=== PATIENT | female | born 1995 | race African-American/Black ===

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

== ENCOUNTER 2018-03-28 17:29 | Emergency (ER) | payer OTHER ==
[2018-03-28] MEDS ORDERED: RANITIDINE 50 MG/2 ML VIAL IVP ONE (17:52)
[2018-03-28] MEDS ORDERED: NS 1,000 ML IV ONE (17:52)
[2018-03-28] MEDS ORDERED: methylPREDNISolone SOD SUCC 125 MG/2 ML VIAL IVP ONE (17:52)
--- NOTE | 2018-03-28 17:55 | EDPHY ---
H & P Time Seen by Provider: 03/28/18 17:48 HPI/ROS: CHIEF COMPLAINT: Throat tightness HISTORY OF PRESENT ILLNESS: The patient is a history of nut allergy and is head epinephrine about 3 or 4 times in the last 5 years. At 5:10 p.m. She had some macaroni with possibly cashew sauce and immediately started feeling tightness and tingling in her throat. She presents to the emergency department with a sensation of tightness in her throat but no difficulty in swallowing, no change in speech, no wheezing stridor or drooling. Symptoms moderate but she is concerned because in the past after about 45 min she has gotten much worse and required epinephrine. Not associated with skin rash or abdominal cramping or swelling of her tongue. Not better worse with anything. REVIEW OF SYSTEMS: Eye: no change in vision ENT: Tightness in throat, otherwise as above. Cardiac: No chest pain Pulmonary: Not wheezing or short of breath Abdomen: no vomiting, diarrhea, abdominal pain Musculoskeletal: No symptoms Skin: No urticaria Neuro: no headache Constitutional: no fever : no urinary symptoms A comprehensive 10 point review of systems is otherwise negative aside from elements mentioned in the history of present illness. PAST MEDICAL HISTORY: Allergic reaction as above Social history: Primary care is Dr. Locke in [place] General Appearance: Alert and conversant, cooperative. Eyes: No scleral icterus. ENT, Mouth: Slight uvular swelling but normal tongue, no stridor or drooling. Respiratory: Normal respiratory effort, breath sounds equal, lungs are clear to auscultation. No wheezing. Cardiovascular: Regular rate and rhythm. Gastrointestinal: Abdomen is soft and non tender. Neurological: Alert, face symmetric, normal motor and sensory in extremities. Skin: Warm and dry, no rashes. No urticaria. Musculoskeletal: No peripheral edema. Psychiatric: Not agitated. Emergency Department course/MDM: Solu-Medrol 125 and Benadryl 50, ranitidine 50. Discussed with the patient delaying epinephrine unless she develops worsening symptoms, she is in agreement. Will monitor her in the emergency department. She does have primary care follow-up and epi pens at home. 1857: Re-evaluated, feels back to normal, epinephrine not required at this time , plan to discharge if still doing well in 30 min. Smoking Status: Never smoked Constitutional: Initial Vital Signs Temperature (C) 36.8 C 03/28/18 17:33 Heart Rate 55 L 03/28/18 17:33 Respiratory Rate 16 03/28/18 17:33 Blood Pressure 135/92 H 03/28/18 17:33 O2 Sat (%) 96 03/28/18 17:33 O2 Delivery Mode Room Air Allergies/Adverse Reactions: tree nut Allergy (Verified 03/28/18 17:33) Home Medications: Medication Instructions Recorded EPIPEN 12/27/16 Famotidine [Pepcid] 20 mg PO BID #6 tab 03/28/18 predniSONE [prednisone 20mg (RX)] 40 mg PO DAILY 4 Days tab 03/28/18 Medical Decision Making Differential Diagnosis: Differential for throat tightness considered including but not limited to angioedema, allergic reaction, anaphylaxis, infectious throat problem, foreign body. - Data Points Medications Given: Discontinued Medications Diphenhydramine HCl (Benadryl Injection) 50 mg IVP EDNOW ONE Stop: 03/28/18 17:53 Last Admin: 03/28/18 17:59 Dose: 50 mg Sodium Chloride (Ns) 1,000 mls @ 0 mls/hr IV ONCE ONE; Wide Open PRN Reason: Protocol Stop: 03/28/18 17:53 Last Admin: 03/28/18 17:57 Dose: 1,000 mls Methylprednisolone Sodium Succinate (Solu-Medrol) 125 mg IVP EDNOW ONE Stop: 03/28/18 17:53 Last Admin: 03/28/18 17:57 Dose: 125 mg Ranitidine HCl (Zantac) 50 mg IVP EDNOW ONE Stop: 03/28/18 17:53 Last Admin: 03/28/18 17:58 Dose: 50 mg Departure - Departure Disposition: Home, Routine, Self-Care Clinical Impression: Allergic reaction Qualifiers: Encounter type: initial encounter Qualified Code(s): T78.40XA - Allergy, unspecified, initial encounter Condition: Good Instructions: Food Allergy (ED), General Allergic Reaction (ED) Referrals: ALEXANDRE,UNKNOWN [Other] - As per Instructions (Dr. Locke your PCP in [place]) Prescriptions: Famotidine [Pepcid] 20 mg PO BID #6 tab predniSONE [prednisone 20mg (RX)] 40 mg PO DAILY 4 Days tab
[2018-03-28 19:30] VITALS: BP 130/80
== END 2018-03-28 19:38 | disposition home or self-care (01) ==
DX: T78.1XXA Other adverse food reactions, not elsewhere classified, initial encounter (principal); E86.9 Volume depletion, unspecified
CPT/HCPCS: 96374; J1200; J2780; J2930